=== PATIENT | female | born 1940 | race Caucasian/White ===

== ENCOUNTER → 2016-09-10 08:34 | Outpatient (CLI) | payer MEDICARE, OTHER ==
[2016-09-11 07:27] LABS: IMMUNOGLOBULIN E 26 IU/mL (0-100)
[2016-09-11 08:19] LABS: IMMUNOGLOBULIN A 93 mg/dL (64-422); IMMUNOGLOBULIN G 782 mg/dL (700-1600)
== END | disposition home or self-care (01) ==
LOC: D.RT 08:34
PROVIDERS: Internal Medicine Pulmonary Disease
DX: R06.00 Dyspnea, unspecified (principal)

== ENCOUNTER → 2017-02-04 19:06 | Outpatient (CLI) | payer MEDICARE, OTHER | END | disposition home or self-care (01) | LOC: D.SLEEP 08:00 | DX: G47.33 Obstructive sleep apnea (adult) (pediatric) (principal) ==

== ENCOUNTER 2017-05-10 07:29 | Emergency (ER) | payer MEDICARE, OTHER ==
--- NOTE | ~2017-05-10 | CN ---
PATIENT NAME:SPARKLE MORALES MEDICAL RECORD: [id number] : 40 LOCATION:.ER ADMIT DATE: ACCOUNT: [id number] CONSULTING PHYSICIAN: AURE DUFF MD REFERRING PHYSICIAN: VIN RICE MD DATE OF CONSULTATION: 05/10/2017 ADMITTING DIAGNOSES: 1. Chest pain, atypical. 2. Exertional dyspnea. HISTORY OF PRESENT ILLNESS: Mrs. Morales presents with continued increasing shortness of breath worsened with exertion. She has a chest pain that is on the right side and it is positional. This is very atypical. The chest pain does not appear to be compatible with angina. The dyspnea on exertion is concerning. She has been treated by pulmonary for possible asthma with multiple medications; however, the dyspnea on exertion continues to get worse. Her EKG is with no changes. PHYSICAL EXAMINATION: GENERAL APPEARANCE: Well-nourished, well-developed, appears stated age. Level of distress, comfortable. PSYCHIATRIC: Mental status, alert, normal affect. Orientation, oriented to time, place and person. EYES: Lids and conjunctiva, noninjected. No discharge, no pallor. ENT: Lips, teeth, gums, normal dentition. Oropharynx, no cyanosis, no pallor. NECK: Carotid arteries, bilateral normal upstroke, no bruits, no thrills. JUGULAR VEINS: No jugular venous pressure or distention. CERVICAL LYMPH NODES: Nontender, nonenlarged. THYROID: Not enlarged. Nontender. No nodules. LUNGS: Respiratory effort, unlabored. CHEST: Normal curvature. No thoracic deformity. No chest wall tenderness. Percussion, resonant. Auscultation, clear. No wheezes, no rales, no rhonchi. CARDIOVASCULAR: Precordial exam, nondisplaced. No heaves or pericardial thrills. Rate and rhythm, regular. Heart sounds, normal S1, normal S2. No S3, no gallop, no rub. Systolic murmur, not heard. Diastolic murmur, not heard. EXTREMITIES: No cyanosis, no edema. Peripheral pulses, full and equal in all extremities, except as noted. No bruits appreciated. ABDOMEN: Soft, nondistended. Normal aorta. No bruit. Nontender. No masses. Liver, nontender, no hepatomegaly. Spleen, nontender, no splenomegaly. MUSCULOSKELETAL: No joint tenderness. No joint swelling. No erythema. NEUROLOGICAL: Normal gait, normal strength, normal tone. SKIN: Warm and dry. REVIEW OF SYSTEMS: The patient reports easy bruising but reports no swollen glands. The patient reports no fever, no night sweats, no significant weight gain, no significant weight loss. No significant exercise tolerance. The patient reports no dry eyes, no irritation, no vision change. Patient reports no difficulty hearing and no ear pain. Patient reports no frequent nose bleeds or nose and sinus problems. Patient reports on arm pain on exertion. No shortness of breath while lying down. No history of heart murmur. Patient reports no cough, no wheezing or coughing up blood. Patient reports no abdominal pain, no vomiting. Normal appetite. No diarrhea and not vomiting blood. No nausea and no constipation. Patient reports no incontinence. No difficulty urinating. No hematuria. No increased frequency. Patient reports CONSULT REPORT [id number] [place]PARKLE Carlitos no muscle aches. No weakness, no arthralgias, no back pain. No swelling of the extremities. Patient reports no abnormal mole, no jaundice, no rashes. Reports no loss of consciousness. No weakness and no numbness. No seizures, dizziness, or headaches. The patient reports no depression, no sleep disturbance, feeling safe in a relationship and no alcohol abuse. Patient reports on fatigue. Reports no runny nose or sinus pressure. No itching, no hives, and no frequent sneezing. OVERALL IMPRESSION: Exertional dyspnea very well may be cardiac in nature with a normal EKG, normal troponin. We will set her up for stress testing and Cardiolite imaging as an outpatient. Further care depends on her stress test. TRANSINT:[id number] Voice Confirmation ID: [id number] DOCUMENT ID: [id number] AURE DUFF MD at 1148 CC: [id number] DICTATION DATE: 05/10/17 1051 HEALTH CONSULTANT: 05/10/17 1129 DEP ER 05/10/17 [place] [id number]
[2017-05-10 08:16] LABS: BASOPHILS 0.2 % (0-2); EOSINOPHILS 0.6 % (0-7); HEMATOCRIT 44.6 % (36.0-48.0); HEMOGLOBIN 14.9 g/dL (12-16); IMMATURE GRANULOCYTES 0.4 % (0-5); LYMPHOCYTES 13.5 % (15-50); MCH 28.4 pg (26.0-34.0); MCHC 33.4 g/dL (31.0-37.0); MCV 85.1 fL (80.0-100.0); MEAN PLATELET VOLUME 10.7 fL (7.4-10.4); MONOCYTES 9.5 % (2-11); NEUTROPHILS 75.8 % (40-80); PLATELET COUNT 171 10x3/uL (130-400); RBC 5.24 10x6/uL (4.00-5.40); RDW 13.9 % (11.5-14.5); WBC 9.4 10x3/uL (4.8-10.8)
[2017-05-10 08:42] LABS: ALBUMIN 3.5 g/dL (3.4-5.0); ALKALINE PHOSPHATASE 79 U/L (46-116); ALT (SGPT) 18 U/L (10-68); BILIRUBIN - TOTAL 0.73 mg/dL (0.2-1.3); CALC OSMOLALITY 266 mosm/kg (275-300); CHLORIDE - SERUM 95 mmol/L (98-107); GLUCOSE 96 mg/dL (74-106); POTASSIUM - SERUM 3.9 mmol/L (3.5-5.1); PROTEIN - SERUM 6.9 g/dL (6.4-8.2); SODIUM 133 mmol/L (136-145); UREA NITROGEN 16 mg/dL (7-18); eGFR NON AFRICAN AMERICAN 57 mL/min (90-120)
[2017-05-10 08:53] LABS: CKMB 0.7 U/L (0.0-3.6); CREATINE KINASE 23 UL (21-215)
[2017-05-10 08:54] LABS: TROPONIN-I < 0.017 ng/mL (0.000-0.060)
== END 2017-05-10 11:01 | disposition home or self-care (01) ==
LOC: D.ER 07:29
PROVIDERS: Family Medicine
DX: R07.89 Other chest pain (principal); R06.09 Other forms of dyspnea; R00.1 Bradycardia, unspecified

== ENCOUNTER → 2017-05-20 13:34 | Outpatient (CLI) | payer MEDICARE, OTHER ==
[2017-05-20 15:09] LABS: BASOPHILS 0.2 % (0-2); EOSINOPHILS 6.8 % (0-7); HEMATOCRIT 40.5 % (36.0-48.0); HEMOGLOBIN 13.1 g/dL (12-16); IMMATURE GRANULOCYTES 0.2 % (0-5); MCH 28.1 pg (26.0-34.0); MCHC 32.3 g/dL (31.0-37.0); MCV 86.7 fL (80.0-100.0); MEAN PLATELET VOLUME 11.6 fL (7.4-10.4); MONOCYTES 7.5 % (2-11); NEUTROPHILS 62.3 % (40-80); RBC 4.67 10x6/uL (4.00-5.40); RDW 13.7 % (11.5-14.5); WBC 5.2 10x3/uL (4.8-10.8)
[2017-05-20 15:17] LABS: PLATELET COUNT 118 10x3/uL (130-400)
== END | disposition home or self-care (01) ==
LOC: D.RT 13:34
PROVIDERS: Internal Medicine Pulmonary Disease
DX: J42 Unspecified chronic bronchitis (principal); J45.909 Unspecified asthma, uncomplicated

== ENCOUNTER 2017-09-03 13:21 | Emergency (ER) | payer MEDICARE, OTHER ==
[~2017-09-03] VITALS: Ht 157.5 cm; Wt 90.9 kg
[2017-09-03 13:27] VITALS: Ht 157.5 cm; Wt 90.9 kg
[2017-09-03] MEDS ORDERED: SINGULAIR10 MG PO (13:29)
[2017-09-03] MEDS ORDERED: VENTOLIN HFA18 GM INH (13:31)
[2017-09-03] MEDS ORDERED: OMEPRAZOLE20 M1 PO (13:31)
[2017-09-03] MEDS ORDERED: ZIAC 5-6.25 MG1 TAB PO (13:32)
[2017-09-03] MEDS ORDERED: PREDNISONE20 MG PO (15:37)
[2017-09-03] MEDS ORDERED: VIBRAMYCIN 100100 MG PO (15:37)
[2017-09-03 16:08] VITALS: BP 140/81
[2017-10-26 19:24] VITALS: Ht 157.5 cm; Wt 90.9 kg
== END 2017-09-03 16:07 | disposition home or self-care (01) ==
LOC: D.ER 13:21
DX: J45.901 Unspecified asthma with (acute) exacerbation (principal); J20.9 Acute bronchitis, unspecified; Z87.09 Personal history of other diseases of the respiratory system; I10 Essential (primary) hypertension; K21.9 Gastro-esophageal reflux disease without esophagitis

== ENCOUNTER 2017-10-26 10:24 | Inpatient (IN) | payer MEDICARE, OTHER ==
[~2017-10-26] VITALS: Ht 157.5 cm; Wt 91.4 kg
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
--- NOTE | ~2017-10-26 | EC ---
PATIENT:SPARKLE DOWNS DATE OF SERVICE: 10/26/17 SEX: F MEDICAL RECORD: [id number] DATE OF : 40 LOCATION:D.M3 D.121 AGE OF PATIENT: 76 ADMISSION DATE: 10/26/17 REFERRING PHYSICIAN: INTERPRETING PHYSICIAN: AURE ROSS MD ECHOCARDIOGRAM REPORT ECHO CHARGES 4 ECHO COMPLETE Date: 10/27 CLINICAL DIAGNOSIS: DYSPNEA ECHOCARDIOGRAPHIC MEASUREMENTS (adult normal given) AC root (d.<3.7cm) 2.6 cm LV Septum d (<1.2 cm> 1.5 cm Valve Excursion 1.5 cm LV Septum (systole) 1.6 cm Left Atria (s.<4.0cm> 3.5 cm LVPW d(<1.2cm) 1.0 cm RV (d.<2.3cm) 3.6 cm LVPW (sytole) 1.1 cm LV diastole(<5.6CM) 4.5 cm MV E-F(>70mm/sec) cm LV systole 3.2 cm LVOT Diameter 1.9 cm MV exc.(>10mm) cm Est.ejection fraction (50-75%) % DOPPLER: LVIT cm/sec A 83 cm/sec E 73 cm/sec LA cm/sec RVSP 38.8 mmHg LVOT 136 cm/sec AOP1/2T m/s Asc. Ao 122 cm/sec RVOT 69 cm/sec RA cm/sec PA 74 cm/sec AV Gradient Peak 6.0 mmHg AV Mean 0.9 mmHg AV Area 3.3 cm MV Gradient Peak 3.2 mmHg MV Mean 1.9 mmHg MV Area cm COMMENTS: Director Of Strategy & Mobile: Mckay POZO Head Of Human Resources: Dior Ross TAPE# PACS Pericardial Effusion N DATE OF SERVICE: 10/27/2017 PROCEDURE: Echocardiogram. FINDINGS: 1. Left ventricular chamber size is within normal limits. Left ventricular systolic function is normal. Overall ejection fraction estimated at 60%. 2. Left atrium, right atrium, and right ventricle chamber sizes are within normal limits. 3. Valvular structures have normal structure and motion. ECHOCARDIOGRAM REPORT [id number] SPARKLE DOWNS 4. Doppler interrogation only reveals trace aortic insufficiency, trace tricuspid regurgitation, no other valvular insufficiency or stenosis. 5. No evidence of pericardial effusion or left ventricular thrombus. TRANSINT:[id number] Voice Confirmation ID: [id number] DOCUMENT ID: [id number] AURE ROSS MD at 1208 CC: [id number] DICTATION DATE: 10/27/17 1215 CHANNEL LAYER: 10/27/17 1344 ADM IN [place] [id number] [place] [id number]
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
[~2017-10-26 10:24] MED LIST: OMEPRAZOLE20 M1 PO; PREDNISONE20 MG PO; SINGULAIR10 MG PO; VENTOLIN HFA18 GM INH; VIBRAMYCIN 100100 MG PO; ZIAC 5-6.25 MG1 TAB PO
[2017-10-26 11:39] LABS: BASOPHILS 0.6 % (0-2); EOSINOPHILS 11.8 % (0-7); HEMATOCRIT 40.7 % (36.0-48.0); HEMOGLOBIN 13.4 g/dL (12-16); IMMATURE GRANULOCYTES 0.1 % (0-5); LYMPHOCYTES 16.4 % (15-50); MCH 28.5 pg (26.0-34.0); MCHC 32.9 g/dL (31.0-37.0); MCV 86.4 fL (80.0-100.0); MEAN PLATELET VOLUME 10.7 fL (7.4-10.4); MONOCYTES 5.5 % (2-11); NEUTROPHILS 65.6 % (40-80); PLATELET COUNT 136 10x3/uL (130-400); RBC 4.71 10x6/uL (4.00-5.40); RDW 14.3 % (11.5-14.5); WBC 7.3 10x3/uL (4.8-10.8)
[2017-10-26 11:54] LABS: ALBUMIN 3.4 g/dL (3.4-5.0); ALKALINE PHOSPHATASE 69 U/L (46-116); ALT (SGPT) 22 U/L (10-68); BILIRUBIN - TOTAL 0.41 mg/dL (0.2-1.3); CALC OSMOLALITY 281 mosm/kg (275-300); CALCIUM 9.3 mg/dL (8.5-10.1); CARBON DIOXIDE 31.8 mmol/L (21.0-32.0); CHLORIDE - SERUM 104 mmol/L (98-107); CREATININE - SERUM 0.9 mg/dL (0.6-1.3); GLUCOSE 99 mg/dL (74-106); POTASSIUM - SERUM 3.7 mmol/L (3.5-5.1); PROTEIN - SERUM 6.7 g/dL (6.4-8.2); SODIUM 142 mmol/L (136-145); UREA NITROGEN 10 mg/dL (7-18); eGFR NON AFRICAN AMERICAN 64 mL/min (90-120)
[2017-10-26 11:57] LABS: APTT 22.5 SECONDS (22.8-39.4); INR 0.97 (0.85-1.17); PROTIME 12.5 SECONDS (11.6-15.0)
[2017-10-26 11:58] LABS: D-DIMER-QUANTITATIVE 0.31 ug/mLFEU (0.20-0.54)
[2017-10-26 12:09] LABS: CKMB 1.2 U/L (0.0-3.6); CREATINE KINASE 79 UL (21-215); PRO BNP 351 pg/mL (0-450); TROPONIN-I < 0.017 ng/mL (0.000-0.060)
[2017-10-26 16:00] VITALS: BP 143/69
[2017-10-26 17:37] LABS: CKMB 0.9 U/L (0.0-3.6); CREATINE KINASE 87 UL (21-215)
[2017-10-26 17:45] LABS: TROPONIN-I < 0.017 ng/mL (0.000-0.060)
[2017-10-26 19:24] VITALS: BP 126/101; BMI 36.6
[2017-10-26 19:27] VITALS: BP 104/60
[2017-10-26 23:50] LABS: CKMB 0.8 U/L (0.0-3.6); CREATINE KINASE 95 UL (21-215); TROPONIN-I < 0.017 ng/mL (0.000-0.060)
[2017-10-27 06:38] LABS: BASOPHILS 0.7 % (0-2); EOSINOPHILS 12.4 % (0-7); HEMATOCRIT 38.7 % (36.0-48.0); HEMOGLOBIN 12.5 g/dL (12-16); IMMATURE GRANULOCYTES 0.1 % (0-5); MCH 27.9 pg (26.0-34.0); MCHC 32.3 g/dL (31.0-37.0); MCV 86.4 fL (80.0-100.0); MEAN PLATELET VOLUME 11.2 fL (7.4-10.4); MONOCYTES 7.5 % (2-11); NEUTROPHILS 63.3 % (40-80); PLATELET COUNT 139 10x3/uL (130-400); RBC 4.48 10x6/uL (4.00-5.40); RDW 14.5 % (11.5-14.5); WBC 6.7 10x3/uL (4.8-10.8)
[2017-10-27 07:08] VITALS: BP 153/72
[2017-10-27 07:51] LABS: ALKALINE PHOSPHATASE 64 U/L (46-116); ALT (SGPT) 19 U/L (10-68); BILIRUBIN - TOTAL 0.48 mg/dL (0.2-1.3); CALC OSMOLALITY 281 mosm/kg (275-300); CALCIUM 8.6 mg/dL (8.5-10.1); CARBON DIOXIDE 29.5 mmol/L (21.0-32.0); CHLORIDE - SERUM 104 mmol/L (98-107); CKMB 0.8 U/L (0.0-3.6); CREATINE KINASE 100 UL (21-215); CREATININE - SERUM 0.8 mg/dL (0.6-1.3); GLUCOSE 101 mg/dL (74-106); MAGNESIUM - SERUM 1.8 mg/dL (1.8-2.4); POTASSIUM - SERUM 3.5 mmol/L (3.5-5.1); PROTEIN - SERUM 6.1 g/dL (6.4-8.2); SODIUM 142 mmol/L (136-145); UREA NITROGEN 11 mg/dL (7-18); eGFR NON AFRICAN AMERICAN 74 mL/min (90-120)
[2017-10-27 07:56] LABS: TROPONIN-I < 0.017 ng/mL (0.000-0.060)
[2017-10-27 11:21] VITALS: BP 140/77
[2017-10-27 11:50] LABS: CKMB 1.1 U/L (0.0-3.6); CREATINE KINASE 142 UL (21-215); TROPONIN-I < 0.017 ng/mL (0.000-0.060)
[2017-10-27 15:16] VITALS: BP 136/85
[2017-10-27 19:32] VITALS: BP 153/85
[2017-10-27 23:59] VITALS: BP 153/85; BP 155/82
[2017-10-28 04:42] VITALS: BP 145/81
[2017-10-28 04:59] LABS: BASOPHILS 0.2 % (0-2); EOSINOPHILS 0.2 % (0-7); HEMATOCRIT 38.5 % (36.0-48.0); HEMOGLOBIN 12.7 g/dL (12-16); IMMATURE GRANULOCYTES 0.2 % (0-5); LYMPHOCYTES 7.7 % (15-50); MCH 28.2 pg (26.0-34.0); MCV 85.6 fL (80.0-100.0); MEAN PLATELET VOLUME 11.1 fL (7.4-10.4); MONOCYTES 0.9 % (2-11); NEUTROPHILS 90.8 % (40-80); RDW 14.3 % (11.5-14.5)
[2017-10-28 05:28] LABS: PLATELET COUNT 167 10x3/uL (130-400); WBC 4.7 10x3/uL (4.8-10.8)
[2017-10-28 05:32] LABS: ANION GAP 12.1 mmol/L (8-16); BILIRUBIN - TOTAL 0.44 mg/dL (0.2-1.3); CALCIUM 8.6 mg/dL (8.5-10.1); CARBON DIOXIDE 29.6 mmol/L (21.0-32.0); CREATININE - SERUM 0.9 mg/dL (0.6-1.3); MAGNESIUM - SERUM 1.8 mg/dL (1.8-2.4); POTASSIUM - SERUM 3.7 mmol/L (3.5-5.1); PROTEIN - SERUM 6.4 g/dL (6.4-8.2)
[2017-10-28 07:12] VITALS: BP 177/85
[2017-10-28 10:57] VITALS: BP 160/79
[2017-10-28 14:56] VITALS: BP 140/70
[2017-10-28 19:26] VITALS: BP 162/88
[2017-10-28 21:17] LABS: BASOPHILS 0 % (0-2); EOSINOPHILS 0 % (0-7); HEMATOCRIT 38.7 % (36.0-48.0); HEMOGLOBIN 12.8 g/dL (12-16); IMMATURE GRANULOCYTES 0.3 % (0-5); LYMPHOCYTES 2.9 % (15-50); MCH 28.3 pg (26.0-34.0); MCHC 33.1 g/dL (31.0-37.0); MCV 85.4 fL (80.0-100.0); MEAN PLATELET VOLUME 10.8 fL (7.4-10.4); MONOCYTES 3.5 % (2-11); NEUTROPHILS 93.3 % (40-80); PLATELET COUNT 158 10x3/uL (130-400); RBC 4.53 10x6/uL (4.00-5.40); RDW 14.4 % (11.5-14.5)
[2017-10-28 21:19] LABS: WBC 11.1 10x3/uL (4.8-10.8)
[2017-10-28 21:37] LABS: ALBUMIN 3.3 g/dL (3.4-5.0); ANION GAP 13.7 mmol/L (8-16); BILIRUBIN - TOTAL 0.31 mg/dL (0.2-1.3); CALCIUM 9.4 mg/dL (8.5-10.1); CARBON DIOXIDE 27.8 mmol/L (21.0-32.0); CREATININE - SERUM 1.1 mg/dL (0.6-1.3); POTASSIUM - SERUM 3.5 mmol/L (3.5-5.1); PROTEIN - SERUM 6.7 g/dL (6.4-8.2)
[2017-10-28 23:58] VITALS: BP 152/79
[2017-10-29 04:57] LABS: BASOPHILS 0.1 % (0-2); EOSINOPHILS 0 % (0-7); HEMATOCRIT 38.4 % (36.0-48.0); HEMOGLOBIN 12.7 g/dL (12-16); IMMATURE GRANULOCYTES 0.3 % (0-5); LYMPHOCYTES 3.6 % (15-50); MCH 28.2 pg (26.0-34.0); MCHC 33.1 g/dL (31.0-37.0); MCV 85.3 fL (80.0-100.0); MONOCYTES 2.7 % (2-11); NEUTROPHILS 93.3 % (40-80); PLATELET COUNT 155 10x3/uL (130-400); RDW 14.4 % (11.5-14.5); WBC 9.6 10x3/uL (4.8-10.8)
[2017-10-29 05:23] LABS: ANION GAP 11.6 mmol/L (8-16); BILIRUBIN - TOTAL 0.25 mg/dL (0.2-1.3); CALCIUM 9.2 mg/dL (8.5-10.1); CARBON DIOXIDE 29.1 mmol/L (21.0-32.0); CREATININE - SERUM 1.1 mg/dL (0.6-1.3); MAGNESIUM - SERUM 1.9 mg/dL (1.8-2.4); POTASSIUM - SERUM 3.7 mmol/L (3.5-5.1); PROTEIN - SERUM 6.2 g/dL (6.4-8.2)
[2017-10-29 06:10] VITALS: BP 151/14
[2017-10-29 07:34] VITALS: BP 136/70
[2017-10-29 11:16] VITALS: BP 152/79
[2017-10-30 04:00] VITALS: BP 143/72
[2017-10-30 05:35] LABS: BASOPHILS 0 % (0-2); EOSINOPHILS 0 % (0-7); HEMATOCRIT 38.7 % (36.0-48.0); HEMOGLOBIN 12.7 g/dL (12-16); IMMATURE GRANULOCYTES 0.4 % (0-5); LYMPHOCYTES 2.9 % (15-50); MCH 27.9 pg (26.0-34.0); MCHC 32.8 g/dL (31.0-37.0); MCV 85.1 fL (80.0-100.0); MEAN PLATELET VOLUME 10.9 fL (7.4-10.4); MONOCYTES 3.1 % (2-11); NEUTROPHILS 93.6 % (40-80); PLATELET COUNT 152 10x3/uL (130-400); RBC 4.55 10x6/uL (4.00-5.40); RDW 14.4 % (11.5-14.5)
[2017-10-30 06:22] LABS: ANION GAP 11.9 mmol/L (8-16); BILIRUBIN - TOTAL 0.29 mg/dL (0.2-1.3); CALCIUM 9.4 mg/dL (8.5-10.1); POTASSIUM - SERUM 3.9 mmol/L (3.5-5.1); PROTEIN - SERUM 6.1 g/dL (6.4-8.2)
[2017-10-30 07:50] VITALS: BP 139/77
[2017-10-30 12:19] VITALS: BP 139/84
[2017-10-30 16:44] VITALS: BP 164/67
[2017-10-30 19:37] VITALS: BP 142/69
[2017-10-30 23:16] VITALS: BP 150/83
[2017-10-31 04:18] VITALS: BP 200/80
[2017-10-31 06:36] LABS: BASOPHILS 0 % (0-2); EOSINOPHILS 0 % (0-7); HEMATOCRIT 38.4 % (36.0-48.0); HEMOGLOBIN 12.7 g/dL (12-16); IMMATURE GRANULOCYTES 0.9 % (0-5); LYMPHOCYTES 4.4 % (15-50); MCH 28.2 pg (26.0-34.0); MCHC 33.1 g/dL (31.0-37.0); MCV 85.1 fL (80.0-100.0); MEAN PLATELET VOLUME 10.7 fL (7.4-10.4); MONOCYTES 5.5 % (2-11); NEUTROPHILS 89.2 % (40-80); PLATELET COUNT 141 10x3/uL (130-400); RBC 4.51 10x6/uL (4.00-5.40); RDW 14.6 % (11.5-14.5)
[2017-10-31 07:20] LABS: ALBUMIN 3.1 g/dL (3.4-5.0); ANION GAP 11.2 mmol/L (8-16); BILIRUBIN - TOTAL 0.28 mg/dL (0.2-1.3); CALCIUM 9.2 mg/dL (8.5-10.1); CARBON DIOXIDE 25.5 mmol/L (21.0-32.0); CREATININE - SERUM 1.1 mg/dL (0.6-1.3); MAGNESIUM - SERUM 1.9 mg/dL (1.8-2.4); POTASSIUM - SERUM 3.7 mmol/L (3.5-5.1); PROTEIN - SERUM 6.2 g/dL (6.4-8.2)
[2017-10-31 08:23] VITALS: BP 145/72
[2017-10-31 11:05] VITALS: BP 151/72
[2017-10-31 15:02] VITALS: BP 142/69
[2017-10-31 19:40] VITALS: BP 133/71
[2017-10-31 22:36] VITALS: BP 152/74
[2017-11-01 04:32] LABS: BASOPHILS 0 % (0-2); EOSINOPHILS 0 % (0-7); HEMATOCRIT 40.4 % (36.0-48.0); HEMOGLOBIN 13.3 g/dL (12-16); IMMATURE GRANULOCYTES 0.6 % (0-5); LYMPHOCYTES 4.2 % (15-50); MCH 28.4 pg (26.0-34.0); MCHC 32.9 g/dL (31.0-37.0); MCV 86.1 fL (80.0-100.0); MONOCYTES 7.4 % (2-11); NEUTROPHILS 87.8 % (40-80); PLATELET COUNT 151 10x3/uL (130-400); RBC 4.69 10x6/uL (4.00-5.40); RDW 14.8 % (11.5-14.5); WBC 9.5 10x3/uL (4.8-10.8)
[2017-11-01 05:18] LABS: BILIRUBIN - TOTAL 0.47 mg/dL (0.2-1.3); CALCIUM 9.2 mg/dL (8.5-10.1); CREATININE - SERUM 1.1 mg/dL (0.6-1.3); PROTEIN - SERUM 6.2 g/dL (6.4-8.2)
[2017-11-01 05:19] LABS: CARBON DIOXIDE 32.6 mmol/L (21.0-32.0); POTASSIUM - SERUM 4.6 mmol/L (3.5-5.1)
[2017-11-01 06:11] VITALS: BP 151/74
[2017-11-01 07:46] VITALS: BP 125/60
[2017-11-01 12:45] VITALS: BP 141/68
[2017-11-01 16:29] VITALS: BP 138/87
[2017-11-01 19:10] LABS: BASOPHILS 0 % (0-2); EOSINOPHILS 0 % (0-7); HEMATOCRIT 39.9 % (36.0-48.0); HEMOGLOBIN 13.2 g/dL (12-16); IMMATURE GRANULOCYTES 0.8 % (0-5); LYMPHOCYTES 2.9 % (15-50); MCH 28.3 pg (26.0-34.0); MCHC 33.1 g/dL (31.0-37.0); MCV 85.6 fL (80.0-100.0); MEAN PLATELET VOLUME 10.8 fL (7.4-10.4); MONOCYTES 4.8 % (2-11); NEUTROPHILS 91.5 % (40-80); PLATELET COUNT 146 10x3/uL (130-400); RBC 4.66 10x6/uL (4.00-5.40); RDW 14.7 % (11.5-14.5); WBC 10.5 10x3/uL (4.8-10.8)
[2017-11-01 19:33] LABS: INR 1.03 (0.85-1.17); PROTIME 13.1 SECONDS (11.6-15.0)
[2017-11-01 20:03] VITALS: BP 140/74
[2017-11-01 20:13] LABS: APTT < 20.0 SECONDS (22.8-39.4)
[2017-11-02] VITALS (12 sets, daily range): BP systolic 105–151; BP diastolic 61–78; Ht 157.5 cm; Wt 91.4 kg
[2017-11-02 05:04] LABS: BASOPHILS 0.1 % (0-2); EOSINOPHILS 0.1 % (0-7); HEMATOCRIT 43.2 % (36.0-48.0); HEMOGLOBIN 14.3 g/dL (12-16); IMMATURE GRANULOCYTES 0.9 % (0-5); LYMPHOCYTES 5.1 % (15-50); MCH 28.4 pg (26.0-34.0); MCHC 33.1 g/dL (31.0-37.0); MCV 85.9 fL (80.0-100.0); MEAN PLATELET VOLUME 10.9 fL (7.4-10.4); MONOCYTES 8.3 % (2-11); NEUTROPHILS 85.5 % (40-80); PLATELET COUNT 175 10x3/uL (130-400); RBC 5.03 10x6/uL (4.00-5.40); RDW 14.6 % (11.5-14.5); WBC 11.6 10x3/uL (4.8-10.8)
[2017-11-02 05:18] LABS: ANION GAP 10.9 mmol/L (8-16); CALCIUM 9.3 mg/dL (8.5-10.1); CARBON DIOXIDE 32.5 mmol/L (21.0-32.0); CREATININE - SERUM 1.2 mg/dL (0.6-1.3); POTASSIUM - SERUM 4.4 mmol/L (3.5-5.1)
[2017-11-03 04:50] LABS: BASOPHILS 0.1 % (0-2); EOSINOPHILS 0.1 % (0-7); HEMATOCRIT 38.5 % (36.0-48.0); HEMOGLOBIN 12.8 g/dL (12-16); IMMATURE GRANULOCYTES 0.8 % (0-5); LYMPHOCYTES 4.9 % (15-50); MCH 28.4 pg (26.0-34.0); MCHC 33.2 g/dL (31.0-37.0); MCV 85.4 fL (80.0-100.0); MEAN PLATELET VOLUME 11.5 fL (7.4-10.4); MONOCYTES 4.9 % (2-11); NEUTROPHILS 89.2 % (40-80); RBC 4.51 10x6/uL (4.00-5.40); RDW 14.8 % (11.5-14.5)
[2017-11-03 04:52] LABS: PLATELET COUNT 139 10x3/uL (130-400)
[2017-11-03 04:55] VITALS: BP 123/85; BP 136/78
[2017-11-03 05:15] LABS: ANION GAP 11.4 mmol/L (8-16); CALCIUM 8.7 mg/dL (8.5-10.1); POTASSIUM - SERUM 4.4 mmol/L (3.5-5.1)
[2017-11-03 07:26] LABS: APPEARANCE CLEAR (CLEAR); BILIRUBIN NEGATIVE (NEGATIVE); COLOR STRAW (YELLOW); GLUCOSE NEGATIVE (NEGATIVE); KETONE NEGATIVE (NEGATIVE); NITRITE NEGATIVE (NEGATIVE); PROTEIN NEGATIVE (NEGATIVE); SPECIFIC GRAVITY 1.005 (1.005-1.020); UROBILINOGEN NORMAL (NORMAL)
[2017-11-03 07:30] VITALS: BP 128/71
[2017-11-03 08:00] VITALS: BP 107/68
[2017-11-03 12:00] VITALS: BP 140/66
[2017-11-03 14:30] LABS: ACID FAST SMEAR Negative (()); AFB SPECIMEN PROCESSING Concentration (()); FUNGUS STAIN Final report (())
[2017-11-03 15:36] VITALS: BP 134/74
[2017-11-03 19:28] VITALS: BP 121/89
[2017-11-04 04:00] VITALS: BP 123/80
[2017-11-04 04:53] LABS: BASOPHILS 0.1 % (0-2); EOSINOPHILS 0.2 % (0-7); HEMOGLOBIN 12.4 g/dL (12-16); IMMATURE GRANULOCYTES 1.1 % (0-5); MCH 27.9 pg (26.0-34.0); MCHC 32.6 g/dL (31.0-37.0); MCV 85.6 fL (80.0-100.0); MEAN PLATELET VOLUME 11.6 fL (7.4-10.4); MONOCYTES 5.4 % (2-11); NEUTROPHILS 88.2 % (40-80); PLATELET COUNT 134 10x3/uL (130-400); RBC 4.44 10x6/uL (4.00-5.40); RDW 14.5 % (11.5-14.5); WBC 10.7 10x3/uL (4.8-10.8)
[2017-11-04 05:08] LABS: ANION GAP 8.3 mmol/L (8-16); CALCIUM 9.2 mg/dL (8.5-10.1); CARBON DIOXIDE 32.5 mmol/L (21.0-32.0); CREATININE - SERUM 1.1 mg/dL (0.6-1.3); POTASSIUM - SERUM 4.8 mmol/L (3.5-5.1)
[2017-11-04 08:01] VITALS: BP 138/54
[2017-11-04] MEDS ORDERED: NYSTATIN ORAL SU5 ML PO (09:00)
[2017-11-04] MEDS ORDERED: MUCINEX600 MG PO (09:00)
[2017-11-04] MEDS ORDERED: PREDNISONE10 MG PO (09:02)
[2017-11-09 15:23] LABS: FUNGUS CULTURE RESULT 1 Candida albicans (())
[2017-11-29 19:09] LABS: FUNGUS MYCOLOGY CULTURE Final report (())
== END 2017-11-04 13:26 | disposition home or self-care (01) | DRG 202 ==
LOC: D.ER 10:24 → D.M3 16:28 → D.EDHOLD 16:28 → D.M3 17:48
PROVIDERS: Family Medicine; Family Medicine Adult Medicine; Internal Medicine; Internal Medicine Nephrology; Internal Medicine Pulmonary Disease
PROC: 0BC68ZZ Extirpation of Matter from Right Lower Lobe Bronchus, Via Natural or Artificial Opening Endoscopic (ICD-10-PCS; 2017-11-02)
PROC: 0BCB8ZZ Extirpation of Matter from Left Lower Lobe Bronchus, Via Natural or Artificial Opening Endoscopic (ICD-10-PCS; principal; 2017-11-02 10:00)
DX: J20.9 Acute bronchitis, unspecified (principal); J44.0 Chronic obstructive pulmonary disease with (acute) lower respiratory infection; T17.590A Other foreign object in bronchus causing asphyxiation, initial encounter; N17.9 Acute kidney failure, unspecified; J45.901 Unspecified asthma with (acute) exacerbation; J31.0 Chronic rhinitis; R09.82 Postnasal drip; F41.9 Anxiety disorder, unspecified; Z85.3 Personal history of malignant neoplasm of breast; K21.9 Gastro-esophageal reflux disease without esophagitis; I08.2 Rheumatic disorders of both aortic and tricuspid valves

== ENCOUNTER → 2017-11-16 19:43 | Outpatient (CLI) | payer MEDICARE, OTHER ==
[2017-11-02 10:02] VITALS: BMI 41.4
[~2017-11-16 19:43] MED LIST changes: +MUCINEX600 MG PO; +NYSTATIN ORAL SU5 ML PO; +PREDNISONE10 MG PO
== END | disposition home or self-care (01) ==
LOC: D.SLEEP 19:43
DX: G47.33 Obstructive sleep apnea (adult) (pediatric) (principal); Z01.812 Encounter for preprocedural laboratory examination

== ENCOUNTER → 2018-08-01 07:43 | Outpatient (CLI) | payer MEDICARE, OTHER ==
[2017-11-02 10:02] VITALS: BMI 41.4
== END | disposition home or self-care (01) ==
LOC: D.RT 05-17 13:00
PROVIDERS: ATTEND Internal Medicine Pulmonary Disease
DX: J45.909 Unspecified asthma, uncomplicated (principal)

== ENCOUNTER → 2018-12-26 11:21 | Outpatient (CLI) | payer MEDICARE ==
[2017-11-02 10:02] VITALS: BMI 41.4
[2018-12-26 12:18] LABS: BASOPHILS 0.1 % (0-2); EOSINOPHILS 0.1 % (0-7); HEMATOCRIT 43.3 % (36.0-48.0); HEMOGLOBIN 14.2 g/dL (12-16); IMMATURE GRANULOCYTES 0.5 % (0-5); LYMPHOCYTES 10.2 % (15-50); MCH 28.6 pg (26.0-34.0); MCHC 32.8 g/dL (31.0-37.0); MCV 87.3 fL (80.0-100.0); MONOCYTES 6.9 % (2-11); NEUTROPHILS 82.2 % (40-80); RBC 4.96 10x6/uL (4.00-5.40); RDW 13.8 % (11.5-14.5); WBC 10.8 10x3/uL (4.8-10.8)
[2018-12-26 12:19] LABS: PLATELET COUNT 209 10x3/uL (130-400)
== END | disposition home or self-care (01) ==
LOC: D.LAB 11:15 → D.RT 11:30
PROVIDERS: ATTEND Internal Medicine Pulmonary Disease
DX: J44.9 Chronic obstructive pulmonary disease, unspecified (principal); J98.11 Atelectasis

== ENCOUNTER → 2019-12-01 13:31 | Outpatient (CLI) | payer MEDICARE ==
[2017-11-02 10:02] VITALS: BMI 41.4
== END | disposition home or self-care (01) ==
LOC: D.LAB 13:31
PROVIDERS: ATTEND Internal Medicine Pulmonary Disease
DX: Z11.59 Encounter for screening for other viral diseases (principal)

== ENCOUNTER → 2019-12-05 14:57 | Outpatient (CLI) | payer MEDICARE ==
[2017-11-02 10:02] VITALS: BMI 41.4
== END | disposition home or self-care (01) ==
LOC: D.RT 11-29 15:30
PROVIDERS: ATTEND Internal Medicine Pulmonary Disease
DX: J44.9 Chronic obstructive pulmonary disease, unspecified (principal)

== ENCOUNTER → 2019-12-13 16:54 | Outpatient (CLI) | payer MEDICARE ==
[2017-11-02 10:02] VITALS: BMI 41.4
[2019-12-13 17:21] LABS: BASOPHILS 0.1 % (0-2); EOSINOPHILS 0.5 % (0-7); HEMATOCRIT 40.1 % (36.0-48.0); HEMOGLOBIN 12.9 g/dL (12-16); IMMATURE GRANULOCYTES 0.4 % (0-5); LYMPHOCYTES 6.2 % (15-50); MCH 28.4 pg (26.0-34.0); MCHC 32.2 g/dL (31.0-37.0); MCV 88.1 fL (80.0-100.0); MEAN PLATELET VOLUME 11.1 fL (7.4-10.4); MONOCYTES 4.8 % (2-11); PLATELET COUNT 191 10x3/uL (130-400); RBC 4.55 10x6/uL (4.00-5.40); RDW 13.5 % (11.5-14.5)
== END | disposition home or self-care (01) ==
LOC: D.LABREF 16:54
PROVIDERS: ATTEND Family Medicine
DX: J45.51 Severe persistent asthma with (acute) exacerbation (principal)

== ENCOUNTER → 2020-06-10 12:39 | Outpatient (CLI) | payer MEDICARE ==
[2017-11-02 10:02] VITALS: BMI 41.4
== END | disposition home or self-care (01) ==
LOC: D.US 12:39
PROVIDERS: ATTEND Family Medicine
DX: M79.605 Pain in left leg (principal)